=== PATIENT | male | born 1935 | race Caucasian/White ===

== ENCOUNTER 2016-12-17 16:22 | Outpatient (CLI) | payer OTHER ==
--- NOTE | 2016-12-17 17:26 | Diagnostic Imaging Report ---
JERMAIN SOTOMAYOR~ [facility] [address] [address] ~ ~ ~ ~ Report Submission Date: Dec 17, 2016 5:03:45 PM CDT Patient ~ Study Name: TRAVIS DALTON ~ Date: Dec 17, 2016 4:39:09 PM CDT ~ Modality Type: CR Gender: M ~ Description: CHEST : 37 ~ Institution: [facility] Physician: JERMAIN SOTOMAYOR ~ ~ ~ ~ Examination: PA and lateral chest. History: Evaluate lung kulkarni. Comparison exam: None provided Findings: PA lateral chest demonstrate a normal cardiac silhouette. Tortuosity of the thoracic aorta. Region of parenchymal fullness at the dome of the right diaphragm. Remaining lung kulkarni are otherwise clear. No blunting of the costophrenic margins. Osseous structures are appropriate for age. Impression: Right superior diaphragmatic fullness. Could represent focal infiltrate/pneumonia. No effusion. Correlate with prior exams when become available. ~ Electronically signed on Dec 17, 2016 5:03:45 PM CDT by: Srinivas AMADO
== END 2016-12-17 16:23 ==
LOC: RT 16:22
PROVIDERS: ATTEND Family Medicine
DX: R06.09 Other forms of dyspnea (principal); R07.2 Precordial pain
CPT/HCPCS: 36415; 71020; 84484

== ENCOUNTER 2016-12-18 15:47 | Outpatient (CLI) | payer OTHER | END 2016-12-18 15:50 | LOC: CARD 15:47 | PROVIDERS: ATTEND Internal Medicine Cardiovascular Disease | DX: R07.9 Chest pain, unspecified (principal); I10 Essential (primary) hypertension | CPT/HCPCS: G0463 ==

== ENCOUNTER 2017-01-01 12:37 | Outpatient (CLI) | payer OTHER | END 2017-01-01 12:38 | LOC: CARD 12:37 | PROVIDERS: ATTEND Internal Medicine Cardiovascular Disease | DX: R07.89 Other chest pain (principal); I10 Essential (primary) hypertension | CPT/HCPCS: G0463 ==

== ENCOUNTER 2017-03-04 15:42 | Emergency (ER) | payer OTHER ==
--- NOTE | 2017-03-04 15:56 | ED Physician Documentation ---
Dyspnea - HISTORIAN Historian: patient - HPI Chief Complaint: Dyspnea Onset: hours Duration: continues in ED Exacerbated By: nothing Associated Symptoms: none Further Comments: yes (81 year old male patient presents with complaints of dyspnea, worse with exerction. Patient denies edema in legs.) - PAST HX Allergies/Adverse Reactions: Allergies Allergy/AdvReac Type Severity Reaction Status Date / Time xanthan gum AdvReac Nausea/Vomi Verified 03/04/17 16:08 ting bha Allergy Unknown Uncoded 03/04/17 16:08 bht Allergy Unknown Uncoded 03/04/17 16:08 disodium EDTA Allergy Unknown Uncoded 03/04/17 16:08 tbhq Allergy heart Uncoded 03/04/17 16:08 failure Progress - Progress Progress: Reviewed old CV and primary care notes. Stress test on 01/01/17 - negative with rest EF 55%. Patient with multiple clinic visits for c/o dyspnea. BBS clear, RA Sat 95% - EKG/XRAY/CT EKG: rhythm (SR, rate 91, occassional PVC. ) ED Results Lab/Radiology - Orders Orders: ED Orders Category Date Time Status Continuous EKG monitoring Q30M Care 03/04/17 15:55 Active Continuous Pulse Oximetry Q30M Care 03/04/17 15:[address] IV Lock 1T Care 03/04/17 15:55 Active CHEST 2 VIEW [CHEST P.A.&LAT 2 VIEWS] [RAD] Stat Exams 03/04/17 Ordered CBC/PLATELET/DIFF Stat Lab 03/04/17 15:54 Ordered CMP Stat Lab 03/04/17 15:54 Ordered UA W/MICRO IF INDICATED Stat Lab 03/04/17 15:55 Ordered EKG WITH COMPARISON Stat Ther 03/04/17 15:55 Ordered Discharge Referrals: Dirk Bell MD [Primary Care Provider] - 2 Days
[2017-03-04 16:02] LABS: BASOPHILS % 0.3 (0.0-1.5); EOSINOPHILS % 2.5 % (0.0-6.8); MEAN CORPUSCULAR VOLUME 91.4 fl (80.0-100.0); MONOCYTES % 6.4 % (0.0-11.0); NEUTROPHILS # 4.2 # k/uL (1.4-7.7)
[2017-03-04 16:15] LABS: eGFR (African) > 60; eGFR (Non-African) > 60
--- NOTE | 2017-03-04 16:17 | Diagnostic Imaging Report ---
[facility] [address] [facility] [address] Report Submission Date: Mar 04, 2017 4:14:52 PM LIFE SKILLS WORKER Patient Study Name: TRAVIS DALTON Date: Mar 04, 2017 4:03:00 PM [employer] SK[employer] WORKER Modality Type: CR Gender: M Description: CHEST : 37 Institution: [facility] Physician: PAULINO NOVA (FILTER TANK TENDER HELPER) - ER Examination: PA and lateral chest. History: Evaluate lung kulkarni. Comparison exam: 17 December 2016 Findings: PA lateral chest demonstrate a normal cardiac silhouette. Stable tortuosity of thoracic aorta. No focal infiltrate. No blunting of the costophrenic margins. Osseous structures are appropriate for age. Impression: Stable chest. No acute pulmonary process. Electronically signed on Mar 04, 2017 4:14:52 PM LIFE SKILLS WORKER by: Srinivas AMADO
[2017-03-04] MEDS ORDERED: SIMETHICONE 80 MG TAB.CHEW PO ONE (16:27)
[2017-03-04 17:20] VITALS: BP 155/74
== END 2017-03-04 17:18 ==
LOC: ED 15:42
DX: R06.00 Dyspnea, unspecified (principal)
CPT/HCPCS: 71020; 80053; 83880; 85025; 99283; S1016

== ENCOUNTER 2017-04-19 11:27 | Outpatient (CLI) | payer OTHER ==
--- NOTE | 2017-04-29 11:49 | OP Clinic Progress Note ---
PRIMARY CARE PROVIDER: Dr. Dirk Bell CHIEF COMPLAINT: "I am having trouble feeling short of breath a lot." SIGNIFICANT PROBLEM LIST: 1. Asthma. 2. Hypertension. 3. Gastroesophageal reflux disease (GERD) with questionable esophageal dilatation. 4. Glaucoma. 5. Nephrolithiasis. 6. Prostate carcinoma: Status post prostatectomy. 7. Degenerative joint disease (DJD). HISTORY OF PRESENT ILLNESS: This is an 82-year-old gentleman who has been complaining of dyspnea on exertion. He was recently seen in [facility] Emergency Department on March 04, 2017. The evaluation was negative and the patient was discharged with a diagnosis of anxiety. He also was seen by Dr. Bell on March 07, 2017, without any change in his medication. Patient states that he developed asthma in 1962 after having had the flu. He remembers being treated with oral breathing pills and Decadron. Since that time, he had been on Advair but has stopped it because of complaints of hoarseness. He also was given Serevent which he also stopped due to complaints of hoarseness. He currently is using BEVESPI inhaler which he states does not help him. He also uses albuterol p.r.n. and definitely thinks that the albuterol helps him. He is concerned regarding the treatment for his glaucoma. He states that the eye drops he has used in the past definitely has made his asthma worse, particularly Timolol eye drops. One of his major complaints is that "food gets caught in my throat." This has been going on for approximately 3 years and he currently is unable to swallow pills. He states that he did have a swallow evaluation, I believe it was a barium swallow, and that was negative. Patient also complains of significant sinus drainage and has been using Flonase Nasal [place] which he says does help. Patient is a lifelong nonsmoker. He does not drink alcohol. He does have trouble with chest pain and PND. Also has issues with GERD and postnasal drip. He has an occasional cough. There is no hemoptysis. No edema. His weight has been stable and his appetite is good. Energy level is adequate. He has never taken prednisone for his breathing. He has no past history of pneumonia or DVTs. In the evaluation for his chest pain, patient has recently had an echo stress test that was done on January 01, 2017. There were no signs of ischemia and his ejection fraction (EF) was 55%. REVIEW OF SYSTEMS: Please see HPI for pertinent review of systems, otherwise, negative. ALLERGIES: No known drug allergies, however, he has allergies to food additives: 1. BHA. 2. BHT. 3. Disodium EDTA. 4. TBHQ. MEDICATIONS: 1. Lisinopril/hydrochlorothiazide 20/12.5 mg daily. 2. Montelukast 10 mg daily. 3. ProAir inhalation p.r.n. 4. Travatan Z eye drops, 1 drop in each eye daily. 5. Triamcinolone cream. 6. Betamethasone cream. FAMILY HISTORY: Mother has heart disease, otherwise, patient states he does not know his family history. SOCIAL HISTORY: He is retired and lives alone. PHYSICAL EXAMINATION: GENERAL: This is a well-developed, well-nourished male in no acute distress speaking in full sentences. VITAL SIGNS: BP: 162/76, P: 76, R: 20, T: 97.7, room air oxygen saturation is 97%. Height: 5 feet 8 inches. Weight: 168 pounds. HEENT: Pupils are equal and reactive. Oropharynx is clear. No thrush. LUNGS: Good bilateral air movement. No crackles. No wheezes. No dullness to percussion. CARDIAC: Rate and rhythm are regular. No murmur, rubs, or gallops. S1, S2 without S3 or S4. ABDOMEN: Positive bowel sounds. Soft and nontender. No organomegaly. EXTREMITIES: No edema, cyanosis, or clubbing. Lower extremities with extensive varicose veins. NEUROLOGIC: Alert and oriented x3. Grossly nonfocal. Gait appropriate for age. IMAGING: All imaging independently reviewed by me personally. 1. Chest x-ray on March 04, 2017: Mild cephalization with peribronchial cuffing. A large stomach bubble noted. Also a slight opacity just above the right hemidiaphragm. 2. Chest x-ray on December 17, 2016: Peribronchial cuffing. A small opacity above the right hemidiaphragm. Large stomach bubble and air in the intestines. 3. Six-minute walk test on April 19, 2017: Patient did not desaturate. His oxygen saturations ranged from 96 to 95. His heart rate ranged from 76 to 104. Patient kept up a moderate pace and was able to speak in complete sentences. LABORATORIES: 1. Chemistry on March 04, 2017: Sodium 140, potassium 4.0, chloride 103 , bicarbonate 26, BUN 19, creatinine 1.0. 2. CBC on March 04, 2017: Hemoglobin 15, hematocrit 45, white blood cell count 5.6, platelets 218,000. ASSESSMENT AND PLAN: PROBLEM #1: Dyspnea on exertion. It may be related to his asthma and inadequate therapy with bronchodilators, namely his inability to use a long-acting beta-agonist and also a long-acting corticosteroid with his complaint of hoarseness. He does state that he did rinse his mouth out. However, I am also concerned regarding his radiographic findings of an enlarged stomach bubble and intestinal air and these might be compressing his lungs and causing some dyspnea on exertion and there is the possibility, although less likely, of chronic pulmonary emboli. PLAN: 1. Pulmonary function test (PFT) with an arterial blood gas (ABG). 2. Discontinue BEVESPI inhaler: This inhaler has a long-acting beta- agonist but also a long-acting anticholinergic which is not indicated in asthma. 3. Symbicort 80/4.5, two inhalations b.i.d. Patient is instructed to rinse his mouth out well after each inhalation. 4. Chest CT with contrast per PE protocol. PROBLEM #2: Chronic dysphagia. Patient is unable to swallow pills currently and there is also notable GI dilatation on his x-rays. PLAN: I instructed patient that he would benefit from a GI referral for his dysphagia. PROBLEM #3. Sinus drainage. PLAN: Continue Flonase Nasal [place]. PROBLEM #4: Pulmonary prevention. Patient has received his flu shot this year and is current with his Pneumonia vaccine. PLAN: Patient will return to clinic after the above tests are completed. cc: Dr. Dirk AMADO
== END 2017-04-19 11:30 ==
LOC: PULMONARY 11:27
PROVIDERS: ATTEND Internal Medicine Pulmonary Disease
DX: J45.909 Unspecified asthma, uncomplicated (principal); I10 Essential (primary) hypertension; K21.9 Gastro-esophageal reflux disease without esophagitis; H40.9 Unspecified glaucoma; N20.0 Calculus of kidney; Z85.46 Personal history of malignant neoplasm of prostate; M19.90 Unspecified osteoarthritis, unspecified site
CPT/HCPCS: 99214; G0463

== ENCOUNTER 2017-04-25 10:10 | Outpatient (CLI) | payer OTHER ==
[2017-04-25 11:06] LABS: eGFR (African) > 60; eGFR (Non-African) > 60
== END 2017-04-25 10:11 ==
LOC: LAB 10:10
PROVIDERS: ATTEND Internal Medicine Pulmonary Disease
DX: I26.99 Other pulmonary embolism without acute cor pulmonale (principal)
CPT/HCPCS: 36415; 82565

== ENCOUNTER 2017-04-26 09:50 | Outpatient (CLI) | payer OTHER ==
--- NOTE | 2017-04-26 14:17 | Diagnostic Imaging Report ---
JOVANI MANNING [facility] [address] [facility] [address] [address] Report Submission Date: Apr 26, 2017 12:09:13 PM WHEEL PRESSER Patient Study Name: TRAVIS DALTON Date: Apr 26, 2017 10:24:04 AM WHEEL PRESSER Modality Type: CT\SR Gender: M Description: CT ANGIOGRAPHY CHEST 7 : 39 Institution: [facility] Physician: JOVANI MANNING Examination: CT chest pulmonary embolism History: Chest discomfort. Comparison exam: Plain film dated 04 March 2017 Technique: CT chest pulmonic pulmonary embolism protocol. Findings: No evidence for luminal filling defect within the main pulmonary arteries to the 3rd order branch vessels bilaterally. Thoracic aorta without aneurysmal dilation. No evidence for dissection flap. Mild peripheral described disease. Lungs demonstrate dependent atelectasis bilaterally. No evidence for posterior pleural effusion or thickening. No mediastinal or leena mass. Scattered subcentimeter lymph nodes. No pathologic adenopathy. Cardiac silhouette not enlarged. No pericardial effusion. Osseous structures demonstrate degenerative changes. Lower neck structures and axilla regions are without gross irregularity. Hepatic cyst. Right renal cortical calcification. Impression: No evidence for pulmonary embolism by CT criteria. No evidence for thoracic aortic dissection or abnormality. No evidence for acute parenchymal consolidation or effusion. Electronically signed on Apr 26, 2017 12:09:13 PM WHEEL PRESSER by: Srinivas AMADO
== END 2017-04-26 09:52 ==
LOC: RAD 09:50
PROVIDERS: ATTEND Internal Medicine Pulmonary Disease
DX: I26.99 Other pulmonary embolism without acute cor pulmonale (principal)
CPT/HCPCS: 71275; Q9967

== ENCOUNTER 2017-04-29 08:47 | Outpatient (CLI) | payer OTHER ==
[2017-04-29] MEDS ORDERED: ALBUTEROL SULFATE 2.5 MG/3 ML AMPUL.NEB NEB ONE (09:16)
[2017-04-29 09:21] LABS: ABG BASE EXCESS 0.8 (-2 - +2); ABG PH 7.46 (7.35-7.45)
== END 2017-04-29 08:50 ==
LOC: RT 08:47
PROVIDERS: ATTEND Internal Medicine Pulmonary Disease
DX: J45.909 Unspecified asthma, uncomplicated (principal); R06.00 Dyspnea, unspecified
CPT/HCPCS: 36600; 82803; 94060

== ENCOUNTER 2017-05-20 08:39 | Day surgery (SDC) | payer OTHER ==
[~2017-05-20 08:39] MED LIST: LACTATED RINGERS 1,000 ML IV.SOLN IV ONE; PROPOFOL 200 MG/20 ML VIAL IV ONE; SALINE FLUSH 10 ML DISP.SYRIN IVF ONE
--- NOTE | 2017-05-21 10:50 | GI Report ---
REFERRING PHYSICIAN: Dr. Dirk Purcell CRANE HOOKER: Fish Fitzpatrick MD PROCEDURE MEDICATION: Propofol as per anesthesia. INDICATIONS: Patient is an 82-year-old who has had difficulty swallowing and sometimes kind of chokes. He has difficulty getting pills down and also food. He points to the cervical esophagus. Apparently, he had a stricture dilated at the GE junction at [facility] more than 10 years ago. He denies much heartburn or indigestion. He does sleep with his bed elevated. PROCEDURE PERFORMED: Endoscopy with esophageal dilatation. PROCEDURE: An Olympus video endoscope is passed through the esophagus without difficulty. In the distal esophagus, the patient has a slight stricture at the GE junction and a small hiatal hernia. Fundus, body of antrum, and stomach, otherwise, unremarkable, pylorus, duodenal bulb, and first and second part of the duodenum. A guidewire is placed in the stomach. Starting at a 15 mm and then a 16 mm Savary-Jaquan dilator passed over the guidewire without difficulty. The endoscope was reintroduced. There was some bleeding where the stricture was stretched at the GE junction. There may have been also a slight stricture in the cricopharyngeus. FINDINGS: 1. Esophageal stricture dilated to 16 mm or 48-[place]awk. 2. Hiatal hernia. RECOMMENDATIONS: 1. Just a full liquid diet today. 2. I would avoid cold liquids with meals and pills. 3. Sleep with the bed elevated. 4. If his swallowing does not improve, then an esophageal motility study or a barium swallow would be the next considerations. cc: Dr. Dirk AMADO
== END 2017-05-20 08:40 ==
LOC: OPSURG 08:39
PROVIDERS: ATTEND Internal Medicine Gastroenterology
DX: K22.2 Esophageal obstruction (principal); K44.9 Diaphragmatic hernia without obstruction or gangrene
CPT/HCPCS: J2704; J7120; 43248; S1016

== ENCOUNTER 2017-06-24 09:11 | Outpatient (CLI) | payer OTHER ==
[2017-06-24 09:57] LABS: eGFR (African) > 60; eGFR (Non-African) > 60
== END 2017-06-24 09:13 ==
LOC: LAB 09:11
PROVIDERS: ATTEND Family Medicine
DX: R25.2 Cramp and spasm (principal)
CPT/HCPCS: 36415; 80053; 83735

== ENCOUNTER 2017-06-28 14:23 | Outpatient (CLI) | payer OTHER ==
--- NOTE | 2017-07-09 11:25 | OP Clinic Progress Note ---
PRIMARY CARE PROVIDER: Dr. Dirk Bell CHIEF COMPLAINT: "My breathing has been well until 3 days ago when I switched eye drops." SIGNIFICANT PROBLEM LIST: 1. Asthma. 2. Hypertension. 3. Esophageal stricture: Dilated on May 20, 2017. 4. Hiatal hernia. 5. Gastroesophageal reflux disease. 6. Glaucoma. 7. Nephrolithiasis. 8. Prostate carcinoma: Status post prostatectomy. 9. Degenerative joint disease. HISTORY OF PRESENT ILLNESS: For the shortness of breath and asthma, I suggested the patient should take Symbicort; however, he states he did not take it because his shoe fitter said it was not a good idea due to the steroids. He does state that his breathing has done very well until 3 days ago when he ran out of his eye drop, Travatan, and is now taking Lumigan. He states that he feels the Lumigan is making him more short of breath and wants to discuss this with his green chain marker. The patient did ask me to order the eye drops, Travatan Z, for him and I declined. Patient did have an esophageal stricture dilated due to his complaints of dysphagia. He states at present his swallowing is better. Patient has expressed anxiety and concern regarding all of his medications. ALLERGIES: No known drug allergies. Multiple allergies to food additives. 1. BHA. 2. BHT. 3. Disodium EDTA. 4. TBHQ. MEDICATIONS: 1. Lisinopril/hydrochlorothiazide 20/12.5 mg daily. 2. Montelukast 10 mg daily. 3. Albuterol 2 puffs 3 to 4 hours p.r.n. shortness of breath. 4. Travatan Z eye drops (has run out). 5. Symbicort 80/4.5 mcg b.i.d. (Patient never started it). 6. Lumigan 0.01% eye drops daily. 7. Flonase 2 sprays each nostril daily. 8. Nexium 40 mg daily. 9. Triamcinolone cream. PHYSICAL EXAMINATION: VITAL SIGNS: BP: 147/76, P: 80, R: 22, T: 97.5, oxygen saturation 94% on room air. Weight: 162 pounds. BMI is 24.2. GENERAL: This is a well-developed, well-nourished male in no acute distress speaking in full sentences. HEENT: Pupils are equal and reactive to light. Oropharynx is clear. No thrush. NECK: Supple. No lymphadenopathy. LUNGS: Good equal bilateral air excursion. No wheezes, crackles, or rhonchi. CARDIAC: Rate and rhythm are regular. No murmur, rubs, or gallops. ABDOMEN: Soft and nontender. EXTREMITIES: No edema. No clubbing. NEUROLOGIC: Alert and oriented x3. Grossly nonfocal. IMAGING: Please note due to technical failure with the equipment at [facility], I was unable to review his chest CT scan. 1. Chest CT scan on April 26, 2017. No evidence for pulmonary embolism. No thoracic aortic dissection or abnormality. No acute parenchymal consolidation or effusion. Bilateral dependent atelectasis. 2. PFT: FVC was 2.41 liters, 66% of predicted; FEV1 was 1.91 liters, 68% of predicted; FEV1/FVC was 0.79. This spirometry is consistent with restrictive lung disease. 3. ABG: A pH of 7.46, pCO2 of 34, pO2 of 82, oxygen saturation is 97% on room air. ASSESSMENT AND PLAN: PROBLEM #1: Dyspnea on exertion. This may be related to his asthma. However, the spirometry done at [facility] is suggestive of restrictive lung disease; although, on the chest CT scan, there is no evidence for any interstitial lung disease. PLAN: 1. Consider a full pulmonary function test to assess the degree of restriction. 2. Continue albuterol 2 puffs every 3 to 4 hours p.r.n. shortness of breath. 3. I stated to the patient that he does not have to use the Symbicort if his shoe fitter is against it. PROBLEM #2: Chronic dysphagia secondary to esophageal stricture. This stricture was dilated on May 20, 2017. The patient is feeling slightly better. PLAN: Per Dr. Fitzpatrick's recommendation, if his swallowing does not improve, he would need an esophageal motility study or a barium swallow. PROBLEM #3: Sinus drainage. PLAN: Continue Flonase Nasal [place]. PROBLEM #4: Anxiety/depression. I feel that the patient has significant issues with depression and anxiety that is exacerbating or adding to his physical complaints. Patient got tears in his eyes when talking about his fear of loneliness and being ill. He states that there is nobody around him that could help him. PLAN: 1. I suggested that the patient can get a Medic Alert that he can wear around his neck that can summon help if he needs it. 2. Would consider use of an antidepressant and/or antianxiety medication. 3. Patient to return p.r.n. cc: Dr. Dirk AMADO
== END 2017-06-28 14:30 ==
LOC: PULMONARY 14:23
PROVIDERS: ATTEND Internal Medicine Pulmonary Disease
DX: R06.00 Dyspnea, unspecified (principal); R13.10 Dysphagia, unspecified; K22.2 Esophageal obstruction; J34.89 Other specified disorders of nose and nasal sinuses; F41.9 Anxiety disorder, unspecified; F32.9 Major depressive disorder, single episode, unspecified; J45.909 Unspecified asthma, uncomplicated; I10 Essential (primary) hypertension; K21.0 Gastro-esophageal reflux disease with esophagitis; H40.9 Unspecified glaucoma; N20.0 Calculus of kidney; C61 Malignant neoplasm of prostate; Z90.79 Acquired absence of other genital organ(s); M19.90 Unspecified osteoarthritis, unspecified site; K46.9 Unspecified abdominal hernia without obstruction or gangrene
CPT/HCPCS: 99214; G0463

== ENCOUNTER 2017-09-27 13:44 | Outpatient (CLI) | payer OTHER ==
--- NOTE | 2017-10-01 15:05 | OP Clinic Progress Note ---
PRIMARY CARE PROVIDER: Dr. Dirk Bell CHIEF COMPLAINT: "I am here to tell you that the Symbicort is giving me chest pain." SIGNIFICANT PROBLEM LIST: 1. Asthma. 2. Hypertension. 3. Esophageal stricture: Dilated on May 20, 2017. 4. Hiatal hernia. 5. Gastroesophageal reflux disease. 6. Glaucoma. 7. Nephrolithiasis. 8. Prostate carcinoma: Status post prostatectomy. 9. Degenerative joint disease. HISTORY OF PRESENT ILLNESS: Patient states he decided to use Symbicort as I had suggested at the last visit. He did this in conjunction with his certified orthotist/pedorthist and she did eye pressures before and then again after a week or so of Symbicort and there was no change. Patient said that for approximately a month he used the Symbicort and did not have any problems, but then developed chest pain and decided it was due to the Symbicort. He had been taking 2 puffs b.i.d. He did state he also had trouble with hoarseness of his voice even with rinsing out his mouth after each use. Regarding the chest pain, he says it was more like chest aching. No radiation to the neck or down his arm. No shortness of breath. No nausea. He then went on again to tell me that most of his problems started when he was given Timolol and Lumigan eye drops. ALLERGIES: No known drug allergies. Multiple allergies to food additives. 1. BHA. 2. BHT. 3. Disodium EDTA. 4. TBHQ. MEDICATIONS: 1. Lisinopril/hydrochlorothiazide 20/12.5 mg daily. 2. Montelukast daily. 3. ProAir 2 puffs p.r.n. shortness of breath. 4. Travatan eye drops daily. 5. Triamcinolone cream p.r.n. 6. Betamethasone cream p.r.n. 7. Symbicort 80/4.5 mcg 2 inhalations b.i.d. He has since stopped this medication. 8. Flonase 50 mcg nasal spray, 2 sprays each nostril p.r.n. 9. Nexium 40 mg daily. PHYSICAL EXAMINATION: GENERAL: This is a well-developed, well-nourished male in no acute distress speaking in full sentences. VITAL SIGNS: BP: 141/74, P: 74, R: 22, T: 98.2, oxygen saturation 96% on room air. HEENT: Pupils are equal and reactive to light. Oropharynx is clear. No erythema. No thrush. NECK: Supple. No lymphadenopathy. LUNGS: Good bilateral air excursion. No wheezes, crackles, or rhonchi. CARDIAC: Rate and rhythm are regular. No murmur, rubs, or gallops. ABDOMEN: Soft and nontender. EXTREMITIES: No cyanosis or clubbing. Trace edema. NEUROLOGIC: Alert and oriented x3. Grossly nonfocal exam. LABORATORIES: Laboratories independently reviewed by me personally. Chemistry on June 24, 2017: Sodium 142, potassium 4.2, chloride 101, carbon dioxide 26, BUN 19, creatinine 1.2. LFTs within normal limits. ASSESSMENT AND PLAN: PROBLEM #1: Dyspnea on exertion. Patient carries a diagnosis of asthma but all I have is spirometry done at [facility] that is more suggestive of restrictive lung disease. I have discussed this with the patient that perhaps he has several respiratory issues together and that a full PFT would be very helpful to attempt to tease out what may be going on. PLAN: 1. Patient will think about whether he wants to get full PFTs done at [place]. 2. Continue albuterol MDI p.r.n. shortness of breath. PROBLEM #2: Possible depression/anxiety. Once again, we spent most of the visit with him stating every medicine he takes and the problems he has with them. I reviewed multiple, multiple bronchodilators and he had an issue with every single one. He also stated that he was frustrated because he had no friends or family to help take him to visits where he needed a ride. I, again, brought up the possibility of depression and/or anxiety and he denies it. PLAN: Patient to return to clinic p.r.n. cc: Dr. Dirk AMADO
== END 2017-09-27 13:45 ==
LOC: PULMONARY 13:44
PROVIDERS: ATTEND Internal Medicine Pulmonary Disease
DX: R06.09 Other forms of dyspnea (principal); J45.909 Unspecified asthma, uncomplicated; I10 Essential (primary) hypertension; K21.9 Gastro-esophageal reflux disease without esophagitis; H40.9 Unspecified glaucoma; N20.0 Calculus of kidney; M19.90 Unspecified osteoarthritis, unspecified site
CPT/HCPCS: 99214; G0463

== ENCOUNTER 2019-04-07 16:04 | Outpatient (CLI) | payer OTHER ==
--- NOTE | 2019-04-07 21:23 | Diagnostic Imaging Report ---
PATIENT MR#: [id number] PATIENT PATIENT NAME: TRAVIS DALTON DATE OF : 1935 REFERRING PHYSICIAN: Dirk Bell EXAM DATE: 04/07/2019 ACCESSION NUMBER: [id number] EXAM DESCRIPTION: CHEST 2VIEW HISTORY: ASTHMA FLAIR UP X5 DAY. COMPARISON: None provided. CHEST RADIOGRAPH, FRONTAL AND LATERAL: Upper mediastinum: Not widened. Heart: No cardiomegaly. Lungs: There is mild elevation of the left hemidiaphragm, possibly due to gastric distention. This pr oduces left lower lobe atelectasis. No lobar infiltrate, pulmonary edema, pneumothorax or significant effusion. Skeleton: Midthoracic spondylosis. IMPRESSION: Elevation of the left hemidiaphragm, possibly due to gastric distention. No acute infiltr ate. Read by: Dr. Lukas Edmondson Transcribed by: Lukas Edmondson Transcribed Date: 04/07/2019 9:22:23 PM Electronically signed by: Dr. Lukas Edmondson Date signed: 04/07/2019 9:22:23 PM
== END 2019-04-07 16:14 ==
LOC: RAD 16:04
PROVIDERS: ATTEND Family Medicine
DX: J45.20 Mild intermittent asthma, uncomplicated (principal)
CPT/HCPCS: 71046